=== PATIENT | male | born 1960 | race Caucasian/White ===

== ENCOUNTER 2020-03-29 14:55 | Observation (INO) ==
[2020-03-29 15:06] VITALS: BMI 19.9
--- NOTE | 2020-03-29 15:11 | DR.GIBLEED ---
HPI Time Seen Time Seen by Provider: 03/29/20 15:10 Complaints Chief Complaint:: PT C/O HAVING A B/M THIS AM AND NOTING BLOOD IN STOOL( BRIGHT RED ) PT ON ASA AND BLOOD THINNER ,,,BR Self Treatment fo Chief Complaint: PT DENIES ANY PAIN ,,BR COVID-19 Coronavirus risk:travel/contact w/high risk person: No Has patient experienced Coronavirus symptoms: No Source History Provided: Patient Mode of Arrival Mode of Arrival: Ambulatory Timing Onset of Chief Complaint: 03/29/20 Quality Vomitus: Bright Red Blood Stools: [id number] 5 PMH PMH Past Medical History: No Past Surgical History: Yes Past Surgical History Comment: [place]- STENTS TIMES 5 Family History History of Family Medical Conditions: No Family Medical History: Hypertension Social History Does patient currently use any type of tobacco product: No Have you used tobacco products in the last 12 months: No Type of Tobacco Use: None Does any household member use tobacco: No Alcohol Use: None Do you use any recreational Drugs:: No Lives With: Family Lives Where: Home Travel Risk Coronavirus risk:travel/contact w/high risk person: No Has patient experienced Coronavirus symptoms: No Infectious screening In the last 2 months have you had wt loss of >10#?: NO Have you had fever, night sweats or hemotysis?: No Have you traveled outside the country in the last 6 months?: No Isolation: Standard ROS Review of Systems Constitutional: Weakness and Fatigue Eyes: No Symptoms Reported ENTM: Ear Discharge Respiratoy: No Symptoms Reported Cardiovascular: No Symptoms Reported Gastrointestinal/Abdominal: See HPI Genitourinary: No Symptoms Reported Neurological: No Symptoms Reported Musculoskeletal: No Symptoms Reported Hematologic/Lymphatic: No Symptoms Reported Endocrine: No Symptoms Reported Psychiatric: No Symptoms Reported All Other Systems: Reviewed and Negative PE Vital Signs Vitals: Temperature 96.5 F Pulse Rate 60 Respiratory Rate 22 Blood Pressure 105/62 O2 Sat by Pulse Oximetry 99 General Limitations: No Limitations Head Head Exam: Normal Inspection, Atraumatic and Normocephalic Eyes Eye exam: Normal Appearance, PERRL and EOMI; negative Scleral Icterus ENT ENT Exam: Normal Exam, Normal Oropharynx and Mucous Membranes Moist Neck Neck Exam: Normal Inspection, Full ROM and Trachea Midline Chest Chest Inspection: Normal Inspection and Symmetric Chest Wall Rise; negative Tenderness Respiratory Respiratory Exam: Normal Lung Sounds Bilat; negative Accessory Muscle Use and Chest Wall Tenderness Respiratory Exam: Bilateral: Clear to Auscultation Cardiovascular Cardiovascular Exam: Regular Rate, Normal Rhythm and Normal Heart Sounds Abdominal Exam Abdominal Exam: Normal Inspection, Normal Bowel Sounds and Soft; negative Tenderness Rectal Rectal Exam: Normal Inspection and Normal Rectal Tone Extremities Extremities Exam: Normal Inspection and Full ROM; negative Tenderness Back Back Exam: Normal Inspection and Full ROM; negative Tenderness Neurologic Neurological Exam: Alert, Oriented X3 and Normal Gait Psychiatric Psychiatric Exam: Normal Affect and Normal Mood COURSE Consultation Called: 16:32 Consultation Comments: Dr Rincon surgeon saw pt in ED Dr Argueta accepted pt ROR Labs Reviewed Result Diagrams: 03/29/20 15:48 03/29/20 15:48 Laboratory: WBC 8.4 X10^3/uL (3.6-10.0) 03/29/20 15:48 RBC 4.25 X10^6/uL (4.7-6.0) L 03/29/20 15:48 Hgb 12.2 g/dL (13.5-18.0) L 03/29/20 15:48 Hct 37.5 % (42.0-54.0) L 03/29/20 15:48 MCV 88.2 fL (80.0-100.0) 03/29/20 15:48 MCH 28.7 pg (27.0-34.0) 03/29/20 15:48 MCHC 32.5 g/dL (33.0-35.0) L 03/29/20 15:48 RDW 14.1 % (11.6-16.5) 03/29/20 15:48 Plt Count 451 X10^3/uL (150.0-450.0) H 03/29/20 15:48 MPV 7.2 fL (7.4-11.0) L 03/29/20 15:48 Neut % (Auto) 61.1 % (42.0-75.0) 03/29/20 15:48 Lymph % (Auto) 27.0 % (21.0-51.0) 03/29/20 15:48 [place] % (Auto) 8.0 % (0.0-13.0) 03/29/20 15:48 Eos % (Auto) 2.8 % (0.9-2.9) 03/29/20 15:48 Baso % (Auto) 1.1 % (0.2-1.0) H 03/29/20 15:48 Neut # (Auto) 5.1 x10^3/uL (2.2-4.8) H 03/29/20 15:48 Lymph # (Auto) 2.3 X10^3/uL (1.3-2.9) 03/29/20 15:48 [place] # (Auto) 0.7 x10^3/uL (0.3-0.8) 03/29/20 15:48 Eos # (Auto) 0.2 x10^3/uL (0.0-0.2) 03/29/20 15:48 Baso # (Auto) 0.1 X10^3/uL (0.0-0.1) 03/29/20 15:48 Absolute Nucleated RBC 0.0 /100WBC 03/29/20 15:48 PT 13.8 SECONDS (11.8-14.3) 03/29/20 15:48 INR Target Range - 03/29/20 15:48 INR 1.09 (0.8-1.3) 03/29/20 15:48 APTT 33.1 SECONDS (22.9-36.5) 03/29/20 15:48 PTT Comment - 03/29/20 15:48 Sodium 138 mmol/L (136-145) 03/29/20 15:48 Corrected Sodium TNP 03/29/20 15:48 Potassium 4.3 mmol/L (3.5-5.1) 03/29/20 15:48 Chloride 101 mmol/L (98-107) 03/29/20 15:48 Carbon Dioxide 29.7 mmol/L (21-32) 03/29/20 15:48 BUN 16 mg/dL (7-18) 03/29/20 15:48 Creatinine 0.88 mg/dL (0.70-1.30) 03/29/20 15:48 Est GFR (MDRD) Af Amer > 60 (>60) 03/29/20 15:48 Est GFR (MDRD) Non-Af > 60 (>60) 03/29/20 15:48 Glucose 84 mg/dL (65-99) 03/29/20 15:48 Calcium 9.1 mg/dL (8.5-10.1) 03/29/20 15:48 Corrected Calcium 9.7 mg/dL (8.5-10.1) 03/29/20 15:48 Total Bilirubin 0.30 mg/dL (0.2-1.0) 03/29/20 15:48 AST 26 Units/L (15-37) 03/29/20 15:48 ALT 55 Units/L (12-78) 03/29/20 15:48 Alkaline Phosphatase 195 Units/L (46-116) H 03/29/20 15:48 Total Protein 7.2 g/dL (6.4-8.2) 03/29/20 15:48 Albumin 3.2 g/dL (3.4-5.0) L 03/29/20 15:48 Globulin 4.0 g/dL (2.5-4.5) 03/29/20 15:48 Albumin/Globulin Ratio 0.8 Ratio (1.1-2.1) L 03/29/20 15:48 Stool Description Fob tube 03/29/20 15:35 Stl Occult Blood (IFOB) Positive (NEGATIVE) A 03/29/20 15:35 Opioid Opioid Risk Tool Age (Bean box if 16-45): No History of Preadolescent Sexual Abuse: No Total: 0 Total Score Risk Category: Low Risk Copyright: Claude REECE predicting aberrant behaviors Diagnosis Discharge Problem: Acute lower gastrointestinal bleeding
[2020-03-29 15:56] LABS: BASOPHILS # (AUTO) 0.1 X10^3/uL (0.0-0.1); BASOPHILS % (AUTO) 1.1 % (0.2-1.0); EOSINOPHILS # (AUTO) 0.2 x10^3/uL (0.0-0.2); EOSINOPHILS % (AUTO) 2.8 % (0.9-2.9); HEMATOCRIT 37.5 % (42.0-54.0); HEMOGLOBIN 12.2 g/dL (13.5-18.0); LYMPHOCYTES # (AUTO) 2.3 X10^3/uL (1.3-2.9); MEAN CORPUSCULAR HEMOGLOBIN 28.7 pg (27.0-34.0); MEAN CORPUSCULAR HGB CONC 32.5 g/dL (33.0-35.0); MEAN CORPUSCULAR VOLUME 88.2 fL (80.0-100.0); MEAN PLATELET VOLUME 7.2 fL (7.4-11.0); MONOCYTES # (AUTO) 0.7 x10^3/uL (0.3-0.8); NEUTROPHILS # (AUTO) 5.1 x10^3/uL (2.2-4.8); NEUTROPHILS % (AUTO) 61.1 % (42.0-75.0); PLATELET COUNT 451 X10^3/uL (150.0-450.0); RED BLOOD COUNT 4.25 X10^6/uL (4.7-6.0); RED CELL DISTRIBUTION WIDTH 14.1 % (11.6-16.5); WHITE BLOOD COUNT 8.4 X10^3/uL (3.6-10.0)
[2020-03-29 16:19] LABS: ALANINE AMINOTRANSFERASE 55 Units/L (12-78); ALBUMIN 3.2 g/dL (3.4-5.0); ALKALINE PHOSPHATASE 195 Units/L (46-116); ASPARTATE AMINO TRANSFERASE 26 Units/L (15-37); BLOOD UREA NITROGEN 16 mg/dL (7-18); CALCIUM 9.1 mg/dL (8.5-10.1); CARBON DIOXIDE 29.7 mmol/L (21-32); CHLORIDE 101 mmol/L (98-107); COR CA(FOR HYPOALB) 9.7 mg/dL (8.5-10.1); CREATININE 0.88 mg/dL (0.70-1.30); SODIUM 138 mmol/L (136-145); TOTAL PROTEIN 7.2 g/dL (6.4-8.2); eGFR NON BLACK RACES > 60 (>60)
[2020-03-29] MEDS: NS 1000 ML 1,000 ML IV SCH (20:37)
[2020-03-29] MEDS ORDERED: ASPIRIN EC 81 MG PO ONE (23:15)
[2020-03-29] MEDS ORDERED: ZOCOR TAB 40 MG PO ONE (23:15)
[2020-03-29] MEDS ORDERED: LIPITOR TAB 40 MG ONE (23:18)
[2020-03-29] MEDS: LIPITOR TAB 40 MG PO SCH (23:21)
[2020-03-29] MEDS: ASPIRIN EC 81 MG PO SCH (23:21)
[2020-03-29] MEDS ORDERED: PLAVIX ONE (23:49)
[2020-03-29] MEDS: PLAVIX PO SCH (23:52)
[2020-03-30] MEDS: NS 1000 ML 1,000 ML IV SCH ×4 (02:54→21:13)
[2020-03-30 06:13] LABS: BASOPHILS # (AUTO) 0.1 X10^3/uL (0.0-0.1); BASOPHILS % (AUTO) 1.2 % (0.2-1.0); EOSINOPHILS # (AUTO) 0.3 x10^3/uL (0.0-0.2); EOSINOPHILS % (AUTO) 3.5 % (0.9-2.9); HEMATOCRIT 35.7 % (42.0-54.0); HEMOGLOBIN 11.7 g/dL (13.5-18.0); LYMPHOCYTES # (AUTO) 2.5 X10^3/uL (1.3-2.9); LYMPHOCYTES % (AUTO) 29.1 % (21.0-51.0); MEAN CORPUSCULAR HEMOGLOBIN 28.8 pg (27.0-34.0); MEAN CORPUSCULAR HGB CONC 32.7 g/dL (33.0-35.0); MEAN CORPUSCULAR VOLUME 88.1 fL (80.0-100.0); MEAN PLATELET VOLUME 7.3 fL (7.4-11.0); MONOCYTES # (AUTO) 0.6 x10^3/uL (0.3-0.8); MONOCYTES % (AUTO) 6.7 % (0.0-13.0); NEUTROPHILS # (AUTO) 5.1 x10^3/uL (2.2-4.8); NEUTROPHILS % (AUTO) 59.5 % (42.0-75.0); PLATELET COUNT 397 X10^3/uL (150.0-450.0); RED BLOOD COUNT 4.06 X10^6/uL (4.7-6.0); RED CELL DISTRIBUTION WIDTH 13.9 % (11.6-16.5); WHITE BLOOD COUNT 8.6 X10^3/uL (3.6-10.0)
[2020-03-30 06:34] LABS: ALANINE AMINOTRANSFERASE 44 Units/L (12-78); ALBUMIN 2.7 g/dL (3.4-5.0); ALKALINE PHOSPHATASE 171 Units/L (46-116); ASPARTATE AMINO TRANSFERASE 22 Units/L (15-37); BLOOD UREA NITROGEN 16 mg/dL (7-18); CALCIUM 8.5 mg/dL (8.5-10.1); CARBON DIOXIDE 27.7 mmol/L (21-32); CHLORIDE 106 mmol/L (98-107); COR CA(FOR HYPOALB) 9.5 mg/dL (8.5-10.1); CREATININE 0.77 mg/dL (0.70-1.30); SODIUM 139 mmol/L (136-145); TOTAL PROTEIN 6.3 g/dL (6.4-8.2); eGFR NON BLACK RACES > 60 (>60)
[2020-03-30] MEDS ORDERED: COLACE CAP 100 MG PO ONE (08:46)
[2020-03-30] MEDS ORDERED: MILK OF MAGNESIA ONE (08:46)
[2020-03-30] MEDS: MILK OF MAGNESIA PO SCH ×2 (08:48→21:14)
[2020-03-30] MEDS: PLAVIX PO SCH (08:49)
[2020-03-30] MEDS: PROTONIX INJ 40 MG VIAL IVP SCH (09:02)
[2020-03-30] MEDS ORDERED: COLACE CAP 100 MG PO STA (09:18)
--- NOTE | 2020-03-30 09:39 | RAD ---
HISTORYABD DISTENTIONSTUDYACUTE ABDOMEN SERIESCOMPARISONNoneTECHNIQUEThree view acute abdomen series.FINDINGSThe cardiac and mediastinal contours are within normal limits. The lungs are clear without focal consolidation or segmental collapse. No pleural effusion or pneumothorax.Nonobstructive bowel gas pattern. No definite pneumatosis, free air or portal venous gas. No suspicious abdominal calcifications. Moderate amount of stool in the right:IMPRESSIONNonobstructive bowel gas pattern. Moderate colonic stool burden.Electronically signed by: Shlomo Ortiz (Mar 30, 2020 09:39:18)
[2020-03-30] MEDS: ANUCORT-HC SUPP PR SCH ×2 (10:49→21:13)
--- NOTE | 2020-03-30 15:54 | DR.PROGNOT ---
Hospital Progress Notes - Progress Note for Day of: Progress Note Date: 03/30/20 - Chief Complaint Chief Complaint: Pt is comfortable . no active bleeding this am . no abdominal pain . Hgb 11.7. iron 37 . stable VS - Past Medical Family Social History Past Med/Fam/Surg Hx: No changes since H&P Allergies: Allergies No Known Drug Allergies Allergy (Verified 03/29/20 15:01) - Review Of Systems ROS: No change since H&P - Vital Signs Vital Signs: Temperature 98.0 F Pulse Rate [Left Radial] 63 Pulse Rate 60 Respiratory Rate 18 Blood Pressure [Right Arm] 89/52 Blood Pressure [Left Arm] 105/61 Blood Pressure 105/62 O2 Sat by Pulse Oximetry 98 - Physical Exam Oriented: Normal Eyes: Normal Ear: Normal Nose: Normal Respiratory: Normal Cardiovascular: Normal : Normal GI:Auscultation: Normal GI:Palpation: Normal GI: Tenderness: Normal Skin: Normal Musculoskeletal: Normal Psychiatric: Normal Mood Description: Calm Affect: Normal Speech Pattern: Clear, Appropriate - Laboratory and Diagnostics Result Diagrams: 03/30/20 05:39 03/30/20 05:39 Labs: Laboratory WBC 8.6 X10^3/uL (3.6-10.0) 03/30/20 05:39 RBC 4.06 X10^6/uL (4.7-6.0) L 03/30/20 05:39 Hgb 11.7 g/dL (13.5-18.0) L 03/30/20 05:39 Hct 35.7 % (42.0-54.0) L 03/30/20 05:39 MCV 88.1 fL (80.0-100.0) 03/30/20 05:39 MCH 28.8 pg (27.0-34.0) 03/30/20 05:39 MCHC 32.7 g/dL (33.0-35.0) L 03/30/20 05:39 RDW 13.9 % (11.6-16.5) 03/30/20 05:39 Plt Count 397 X10^3/uL (150.0-450.0) 03/30/20 05:39 MPV 7.3 fL (7.4-11.0) L 03/30/20 05:39 Neut % (Auto) 59.5 % (42.0-75.0) 03/30/20 05:39 Lymph % (Auto) 29.1 % (21.0-51.0) 03/30/20 05:39 [place] % (Auto) 6.7 % (0.0-13.0) 03/30/20 05:39 Eos % (Auto) 3.5 % (0.9-2.9) H 03/30/20 05:39 Baso % (Auto) 1.2 % (0.2-1.0) H 03/30/20 05:39 Neut # (Auto) 5.1 x10^3/uL (2.2-4.8) H 03/30/20 05:39 Lymph # (Auto) 2.5 X10^3/uL (1.3-2.9) 03/30/20 05:39 [place] # (Auto) 0.6 x10^3/uL (0.3-0.8) 03/30/20 05:39 Eos # (Auto) 0.3 x10^3/uL (0.0-0.2) H 03/30/20 05:39 Baso # (Auto) 0.1 X10^3/uL (0.0-0.1) 03/30/20 05:39 Absolute Nucleated RBC 0.0 /100WBC 03/30/20 05:39 PT 13.8 SECONDS (11.8-14.3) 03/29/20 15:48 INR Target Range - 03/29/20 15:48 INR 1.09 (0.8-1.3) 03/29/20 15:48 APTT 33.1 SECONDS (22.9-36.5) 03/29/20 15:48 PTT Comment - 03/29/20 15:48 Sodium 139 mmol/L (136-145) 03/30/20 05:39 Corrected Sodium TNP 03/30/20 05:39 Potassium 4.0 mmol/L (3.5-5.1) 03/30/20 05:39 Chloride 106 mmol/L (98-107) 03/30/20 05:39 Carbon Dioxide 27.7 mmol/L (21-32) 03/30/20 05:39 BUN 16 mg/dL (7-18) 03/30/20 05:39 Creatinine 0.77 mg/dL (0.70-1.30) 03/30/20 05:39 Est GFR (MDRD) Af Amer > 60 (>60) 03/30/20 05:39 Est GFR (MDRD) Non-Af > 60 (>60) 03/30/20 05:39 Glucose 100 mg/dL (65-99) H 03/30/20 05:39 POC Glucose (mg/dL) 98 mg/dL (65-99) 03/30/20 05:31 Calcium 8.5 mg/dL (8.5-10.1) 03/30/20 05:39 Corrected Calcium 9.5 mg/dL (8.5-10.1) 03/30/20 05:39 Iron 37 ug/dL (50-175) L 03/30/20 05:39 Transferrin 172 mg/dL (202-364) L 03/30/20 05:39 Ferritin 253 ng/mL (26-388) 03/30/20 05:39 Total Bilirubin 0.20 mg/dL (0.2-1.0) 03/30/20 05:39 AST 22 Units/L (15-37) 03/30/20 05:39 ALT 44 Units/L (12-78) 03/30/20 05:39 Alkaline Phosphatase 171 Units/L (46-116) H 03/30/20 05:39 Total Protein 6.3 g/dL (6.4-8.2) L 03/30/20 05:39 Albumin 2.7 g/dL (3.4-5.0) L 03/30/20 05:39 Globulin 3.6 g/dL (2.5-4.5) 03/30/20 05:39 Albumin/Globulin Ratio 0.8 Ratio (1.1-2.1) L 03/30/20 05:39 Vitamin B12 323 pg/mL (193-986) 03/30/20 05:39 Folate 15.2 ng/mL (>8.6) 03/30/20 05:39 Stool Description Fob tube 03/29/20 15:35 Stl Occult Blood (IFOB) Positive (NEGATIVE) A 03/29/20 15:35 - Assessment and Plan 1: Rectal bleeding . on anticoagulants s/p stenting for CAD . recent [place] and cardiac cath . same observation . enemas and supp as needed to prevent rectal bleeding from hemorrhoids . will follow in the future and arrange for colonoscopy as out Pt . - Problem Patient Problems: Patient Problems Acute lower gastrointestinal bleeding (Acute) K92.2
--- NOTE | 2020-03-30 18:23 | DR.H&P ---
H&P - History & Physical for Day of: H&P Date: 03/29/20 - Chief Complaint Chief Complaint: RECTAL BLEEDING - History of Present Illness History of Present Illness: PT IS 59 WM WITH CO BRIGHT RED BLOOD IN STOOL AND ON BLOOD THINNERS. PT WAS ER ADMISSION, RECENT ID IN MAR 19, STARTED ON ASPIRIN AND ANTIPLATLET MEDICATION. PT DENIES ANY CHEST PAIN OR SOB, NO FEVER, CCC OR FLU LIKE SYMPTOMS. - Past Surgical History Surgical History: Angioplasty/Stents, Ortho Surgery - Family History Family Medical History: ID, Coronary Artery Disease, Hypertension - Social History Does patient currently use any type of tobacco product: No Have you used tobacco products in the last 12 months: No Type of Tobacco Use: None How many years tobacco product used: 22 Does any household member use tobacco: No Alcohol Use: None Drug Use: None - Medications Home Medications: No Known Drug Allergies Allergy (Verified 03/29/20 15:01) CONTINUE taking the following medications aspirin [Aspirin Low Dose] 81 mg PO DAILY 03/29/20 [History] atorvastatin 40 mg PO HS 03/29/20 [History] prasugrel 10 mg PO DAILY 03/29/20 [History] - Review of Systems Constitutional: No Symptoms Reported Eyes: No Symptoms Reported ENT: No Symptoms Reported Respiratory: No Symptoms Reported Cardiovascular: No Symptoms Reported Gastrointestinal: Constipation, Melena Genitourinary: No Symptoms Reported Musculoskeletal: No Symptoms Reported Skin: No Symptoms Reported Neurological: No Symptoms Reported - Physical Exam Vital Signs: Temperature 97.6 F Pulse Rate [Left Radial] 59 Pulse Rate 60 Respiratory Rate 18 Blood Pressure [Right Arm] 99/55 Blood Pressure [Left Arm] 105/61 Blood Pressure 105/62 O2 Sat by Pulse Oximetry 98 Oriented: Normal Eyes: Normal Ear: Normal Nose: Normal Throat: Normal Respiratory: RLL Diminished Cardiovascular: Normal : Normal Auscultation: Bowel Sounds: Normal Palpation: Normal Tenderness: Normal Skin: Normal, Other (SMALL NON THROMBOSED EXTERNAL HEMORRHOID) Musculoskeletal: Normal Mood Description: Calm Speech Pattern: Clear, Appropriate - Assessment/Plan (1) CAD (coronary artery disease) Status: Acute (2) Acute lower gastrointestinal bleeding Status: Acute Plan: ADMIT, OCCULT STOOL X 3. CONSULT DR ARTHUR, IV HYDRATION WITH STRICT I&OS. KUB, VERIFY HOME MEDICATION. EKG ON ADMISSION DUE TO HX CAD, ANEMIA PANEL. SERIAL H&H - Allergies Allergies/Adverse Reactions: Allergies Allergy/AdvReac Type Severity Reaction Status Date / Time No Known Drug Allergies Allergy Verified 03/29/20 15:01
[2020-03-30] MEDS ORDERED: COLACE CAP 100 MG PO SCH (21:00)
[2020-03-30] MEDS: ASPIRIN EC 81 MG PO SCH (21:14)
[2020-03-30] MEDS: LIPITOR TAB 40 MG PO SCH (21:14)
[2020-03-31] MEDS: NS 1000 ML 1,000 ML IV SCH ×2 (03:20→13:54)
[2020-03-31 06:08] LABS: BASOPHILS # (AUTO) 0.1 X10^3/uL (0.0-0.1); BASOPHILS % (AUTO) 1.3 % (0.2-1.0); EOSINOPHILS # (AUTO) 0.3 x10^3/uL (0.0-0.2); EOSINOPHILS % (AUTO) 4.2 % (0.9-2.9); HEMATOCRIT 35.2 % (42.0-54.0); HEMOGLOBIN 11.7 g/dL (13.5-18.0); LYMPHOCYTES # (AUTO) 2.3 X10^3/uL (1.3-2.9); LYMPHOCYTES % (AUTO) 35.8 % (21.0-51.0); MEAN CORPUSCULAR HEMOGLOBIN 29.4 pg (27.0-34.0); MEAN CORPUSCULAR HGB CONC 33.2 g/dL (33.0-35.0); MEAN CORPUSCULAR VOLUME 88.6 fL (80.0-100.0); MEAN PLATELET VOLUME 7.5 fL (7.4-11.0); MONOCYTES # (AUTO) 0.4 x10^3/uL (0.3-0.8); MONOCYTES % (AUTO) 6.9 % (0.0-13.0); NEUTROPHILS # (AUTO) 3.3 x10^3/uL (2.2-4.8); NEUTROPHILS % (AUTO) 51.8 % (42.0-75.0); PLATELET COUNT 376 X10^3/uL (150.0-450.0); RED BLOOD COUNT 3.97 X10^6/uL (4.7-6.0); RED CELL DISTRIBUTION WIDTH 13.7 % (11.6-16.5); WHITE BLOOD COUNT 6.3 X10^3/uL (3.6-10.0)
[2020-03-31 06:21] LABS: ALANINE AMINOTRANSFERASE 37 Units/L (12-78); ALBUMIN 2.7 g/dL (3.4-5.0); ALKALINE PHOSPHATASE 173 Units/L (46-116); ASPARTATE AMINO TRANSFERASE 19 Units/L (15-37); BLOOD UREA NITROGEN 12 mg/dL (7-18); CALCIUM 8.7 mg/dL (8.5-10.1); CARBON DIOXIDE 28.3 mmol/L (21-32); CHLORIDE 108 mmol/L (98-107); COR CA(FOR HYPOALB) 9.7 mg/dL (8.5-10.1); CREATININE 0.88 mg/dL (0.70-1.30); SODIUM 142 mmol/L (136-145); eGFR NON BLACK RACES > 60 (>60)
[2020-03-31] MEDS ORDERED: NS 100 ML IV 100 ML with VENOFER 400 MG IV NR ×2 (08:00)
[2020-03-31] MEDS: PROTONIX INJ 40 MG VIAL IVP SCH (08:18)
[2020-03-31] MEDS: ANUCORT-HC SUPP PR SCH (08:18)
[2020-03-31] MEDS: PLAVIX PO SCH (08:18)
[2020-03-31 12:03] VITALS: BP 114/66
--- NOTE | 2020-03-31 14:14 | DR.PROGNOT ---
Hospital Progress Notes - Progress Note for Day of: Progress Note Date: 03/31/20 - Chief Complaint Chief Complaint: Pt is comfortable . no active bleeding this am . no abdominal pain . getting Iron infusion. stable VS - Past Medical Family Social History Past Med/Fam/Surg Hx: No changes since H&P Allergies: Allergies No Known Drug Allergies Allergy (Verified 03/29/20 15:01) - Review Of Systems ROS: No change since H&P - Vital Signs Vital Signs: Temperature 98.0 F Pulse Rate [Left Radial] 58 Pulse Rate 60 Respiratory Rate 18 Blood Pressure [Right Arm] 114/66 Blood Pressure [Left Arm] 105/61 Blood Pressure 105/62 O2 Sat by Pulse Oximetry 99 - Physical Exam Oriented: Normal Eyes: Normal Ear: Normal Nose: Normal Throat: Normal Respiratory: Normal Cardiovascular: Normal : Normal GI:Auscultation: Normal GI:Palpation: Normal GI: Tenderness: Normal Skin: Normal, Other (SMALL NON THROMBOSED EXTERNAL HEMORRHOID) Musculoskeletal: Normal Psychiatric: Normal Mood Description: Calm Affect: Normal Speech Pattern: Clear, Appropriate - Laboratory and Diagnostics Result Diagrams: 03/31/20 05:20 03/31/20 05:20 Labs: Laboratory WBC 6.3 X10^3/uL (3.6-10.0) 03/31/20 05:20 RBC 3.97 X10^6/uL (4.7-6.0) L 03/31/20 05:20 Hgb 11.7 g/dL (13.5-18.0) L 03/31/20 05:20 Hct 35.2 % (42.0-54.0) L 03/31/20 05:20 MCV 88.6 fL (80.0-100.0) 03/31/20 05:20 MCH 29.4 pg (27.0-34.0) 03/31/20 05:20 MCHC 33.2 g/dL (33.0-35.0) 03/31/20 05:20 RDW 13.7 % (11.6-16.5) 03/31/20 05:20 Plt Count 376 X10^3/uL (150.0-450.0) 03/31/20 05:20 MPV 7.5 fL (7.4-11.0) 03/31/20 05:20 Neut % (Auto) 51.8 % (42.0-75.0) 03/31/20 05:20 Lymph % (Auto) 35.8 % (21.0-51.0) 03/31/20 05:20 [place] % (Auto) 6.9 % (0.0-13.0) 03/31/20 05:20 Eos % (Auto) 4.2 % (0.9-2.9) H 03/31/20 05:20 Baso % (Auto) 1.3 % (0.2-1.0) H 03/31/20 05:20 Neut # (Auto) 3.3 x10^3/uL (2.2-4.8) 03/31/20 05:20 Lymph # (Auto) 2.3 X10^3/uL (1.3-2.9) 03/31/20 05:20 [place] # (Auto) 0.4 x10^3/uL (0.3-0.8) 03/31/20 05:20 Eos # (Auto) 0.3 x10^3/uL (0.0-0.2) H 03/31/20 05:20 Baso # (Auto) 0.1 X10^3/uL (0.0-0.1) 03/31/20 05:20 Absolute Nucleated RBC 0.0 /100WBC 03/31/20 05:20 PT 13.8 SECONDS (11.8-14.3) 03/29/20 15:48 INR Target Range - 03/29/20 15:48 INR 1.09 (0.8-1.3) 03/29/20 15:48 APTT 33.1 SECONDS (22.9-36.5) 03/29/20 15:48 PTT Comment - 03/29/20 15:48 Sodium 142 mmol/L (136-145) 03/31/20 05:20 Corrected Sodium TNP 03/31/20 05:20 Potassium 4.0 mmol/L (3.5-5.1) 03/31/20 05:20 Chloride 108 mmol/L (98-107) H 03/31/20 05:20 Carbon Dioxide 28.3 mmol/L (21-32) 03/31/20 05:20 BUN 12 mg/dL (7-18) 03/31/20 05:20 Creatinine 0.88 mg/dL (0.70-1.30) 03/31/20 05:20 Est GFR (MDRD) Af Amer > 60 (>60) 03/31/20 05:20 Est GFR (MDRD) Non-Af > 60 (>60) 03/31/20 05:20 Glucose 105 mg/dL (65-99) H 03/31/20 05:20 POC Glucose (mg/dL) 98 mg/dL (65-99) 03/30/20 05:31 Calcium 8.7 mg/dL (8.5-10.1) 03/31/20 05:20 Corrected Calcium 9.7 mg/dL (8.5-10.1) 03/31/20 05:20 Iron 37 ug/dL (50-175) L 03/30/20 05:39 Transferrin 172 mg/dL (202-364) L 03/30/20 05:39 Ferritin 253 ng/mL (26-388) 03/30/20 05:39 Total Bilirubin 0.10 mg/dL (0.2-1.0) L 03/31/20 05:20 AST 19 Units/L (15-37) 03/31/20 05:20 ALT 37 Units/L (12-78) 03/31/20 05:20 Alkaline Phosphatase 173 Units/L (46-116) H 03/31/20 05:20 Total Protein 6.0 g/dL (6.4-8.2) L 03/31/20 05:20 Albumin 2.7 g/dL (3.4-5.0) L 03/31/20 05:20 Globulin 3.3 g/dL (2.5-4.5) 03/31/20 05:20 Albumin/Globulin Ratio 0.8 Ratio (1.1-2.1) L 03/31/20 05:20 Vitamin B12 323 pg/mL (193-986) 03/30/20 05:39 Folate 15.2 ng/mL (>8.6) 03/30/20 05:39 Stool Description Fob tube 03/29/20 15:35 Stl Occult Blood (IFOB) Positive (NEGATIVE) A 03/29/20 15:35 - Assessment and Plan 1: Rectal bleeding . on anticoagulants s/p stenting for CAD . recent [place] and cardiac cath . to follow in the office and future colonoscopy . - Problem Patient Problems: Patient Problems Acute lower gastrointestinal bleeding (Acute) K92.2 CAD (coronary artery disease) (Acute) I25.10
== END 2020-03-31 14:25 | disposition home or self-care (01) ==
LOC: MED/SURG 15:01 → ER 15:01 → MED/SURG 19:24
PROVIDERS: ADMIT Internal Medicine; ATTEND Internal Medicine